=== PATIENT | male | born 1975 | race Two or more races ===

== ENCOUNTER 2022-11-08 01:03 | Emergency (ER) | payer SELFPAY ==
[~2022-11-08] VITALS: Ht 182.9 cm; Wt 100.0 kg
[2022-11-08] MEDS ORDERED: IBUPROFEN 400MG TABLET PO ONE (02:00)
[2022-11-08] MEDS: OLANZAPINE 10 MG/VIAL IM ONE ×2 (02:45→03:42)
[2022-11-08] MEDS ORDERED: LORAZEPAM 2MG/ML CPJ IM ONE (02:45)
[2022-11-08 03:17] LABS: CHLORIDE 106 mEq/L (98-107)
[2022-11-08 03:21] LABS: BASOPHILS % 0.6 % (0.0-2.0); EOSINOPHILS % 1.1 % (0.0-5.0); HEMOGLOBIN. 14.2 g/dL (14.0-18.0); LYMPHOCYTES % 41.9 % (20.0-50.0); MEAN CORPUSCULAR HEMOGLOBIN 26.7 pg (28.0-32.0); MEAN CORPUSCULAR VOLUME 78.9 fL (80.0-94.0); MEAN PLATELET VOLUME 7.8 fl (7.4-10.4); MONOCYTES % 8.8 % (2.0-8.0); NEUTROPHILS % 47.6 % (40.0-76.0); PLATELET 232 x1000/uL (130-400); RED BLOOD CELL COUNT 5.32 mill/uL (4.7-6.1); RED CELL DISTRIBUTION WIDTH 14.2 % (11.6-14.6)
[2022-11-08 03:24] LABS: ETHANOL BLOOD < 10 mg/dL
[2022-11-08 03:34] LABS: *AMPHETAMINES SCREEN URINE NEGATIVE (NEGATIVE); *BARBITURATES SCREEN URINE NEGATIVE (NEGATIVE); *BENZODIAZEPINES SCREEN URINE NEGATIVE (NEGATIVE); *COCAINE SCREEN URINE NEGATIVE (NEGATIVE); CANNABINOID URINE SCREEN NEGATIVE (NEGATIVE); METHADONE URINE SCREEN NEGATIVE (NEGATIVE); OPIATES URINE SCREEN NEGATIVE (NEGATIVE); PHENCYCLIDINE URINE SCREEN NEGATIVE (NEGATIVE)
[2022-11-08 09:51] VITALS: BP 137/77
== END 2022-11-08 11:35 | disposition home or self-care (01) ==
LOC: ER 01:07
DX: S90.822A Blister (nonthermal), left foot, initial encounter (principal); S90.821A Blister (nonthermal), right foot, initial encounter; R45.851 Suicidal ideations; X58.XXXA Exposure to other specified factors, initial encounter; Y93.89 Activity, other specified; Y92.89 Other specified places as the place of occurrence of the external cause; Y99.8 Other external cause status; F20.9 Schizophrenia, unspecified; Z20.822 Contact with and (suspected) exposure to COVID-19
CPT/HCPCS: 36415; 80053; 80305; 80307; 80320; 80329; 85025; 87426; 96372; 99283; J2060; J3490; G0480